=== PATIENT | male | born 1960 ===

== ENCOUNTER 2021-05-22 21:56 | Emergency (ER) | payer SELFPAY ==
[~2021-05-22] VITALS: Ht 170.2 cm; Wt 81.0 kg
[2021-05-22] MEDS ORDERED: MORPHINE SULFATE 4 MG/ML CPJ (NOT FOR IM USE) IV ONE (22:45)
[2021-05-22] MEDS ORDERED: ONDANSETRON HCL 4MG/2ML INJ IV ONE (22:45)
[2021-05-23 01:05] VITALS: BP 138/97
== END 2021-05-23 01:12 | disposition home or self-care (01) ==
LOC: ER 22:12
DX: M25.512 Pain in left shoulder (principal); W18.39XA Other fall on same level, initial encounter; Y93.89 Activity, other specified; Y92.89 Other specified places as the place of occurrence of the external cause; Y99.8 Other external cause status; E78.00 Pure hypercholesterolemia, unspecified; I10 Essential (primary) hypertension
CPT/HCPCS: 73030; 73110; 96374; 96375; 99284; J2270; J2405; L3670